=== PATIENT | male | born 1950 | race Caucasian/White ===

== ENCOUNTER 2021-02-06 10:34 | Outpatient (CLI) | payer MEDICARE, OTHER | END 2021-02-06 10:35 | disposition home or self-care (01) | LOC: CSHMRI 10:34 | PROVIDERS: ATTEND Specialist | DX: R42 Dizziness and giddiness (principal); Z91.81 History of falling; I67.89 Other cerebrovascular disease | CPT/HCPCS: 70553; 82565 ==